=== PATIENT | female | born 1980 | race Caucasian/White ===

== ENCOUNTER → 2020-10-27 10:26 | Outpatient (CLI) | payer OTHER, SELFPAY ==
--- NOTE | ~2020-10-27 | MM_ITS ---
EXAMINATION: MM screening yari BI w vamsi HISTORY: Screening TECHNIQUE: Craniocaudal and mediolateral oblique 3-D tomosynthesis images were obtained and synthetic 2-D images were generated. CAD analysis was submitted and interpreted. COMPARISON: No prior mammogram is available for comparison at this institution. BREAST PARENCHYMAL COMPOSITION: The breasts are heterogeneously dense, which may obscure small masses . FINDINGS: There is no evidence of suspicious mass, calcification, or architectural distortion to sugg est malignancy in either breast. There has been no suspicious interval change. IMPRESSION: 1. No mammographic evidence of malignancy. 2. Recommend routine screening mammography in one year. BI-RADS Category 1: Negative Reviewed, dictated and finalized at location A.
== END ==
PROVIDERS: Visit Provider Obstetrics & Gynecology
DX: Z12.31 Encounter for screening mammogram for malignant neoplasm of breast (principal)
CPT/HCPCS: 77063; 77067

== ENCOUNTER → 2022-02-08 10:32 | Outpatient (CLI) | payer OTHER, SELFPAY ==
--- NOTE | ~2022-02-08 | MM_ITS ---
EXAMINATION: MM screening yari BI w vamsi HISTORY: Screening mammogram TECHNIQUE: Craniocaudal and mediolateral oblique 3-D tomosynthesis images were obtained and synthetic 2-D images were generated. Bilateral rotated lateral CC views. .......CAD analysis was submitted and interpreted. COMPARISON: 10/27/2020 bilateral screening mammogram BREAST PARENCHYMAL COMPOSITION: The breasts are heterogeneously dense, which may obscure small masses . FINDINGS: There is no evidence of suspicious mass, calcification, or architectural distortion to sugg est malignancy in either breast. There has been no suspicious interval change. IMPRESSION: 1. No mammographic evidence of malignancy. 2. Recommend routine screening mammography in one year. BI-RADS Category 1: Negative Reviewed, dictated and finalized at location A. [employer]
== END ==
PROVIDERS: PCP Family Medicine; Visit Provider Obstetrics & Gynecology
DX: Z12.31 Encounter for screening mammogram for malignant neoplasm of breast (principal)
CPT/HCPCS: 77063; 77067

== ENCOUNTER 2023-04-13 08:19 | Outpatient (CLI) | payer OTHER, SELFPAY ==
--- NOTE | 2023-04-24 16:17 | WPDSLEEPSTUD ---
Sleep Study Date of Study: 04/13/23 Ordering Provider: Marisol Arellano DO Interpreting Physician: Marisol Arellano DO Sleep Study Type: Polysomnogram Height: 1.7 m Weight: 79.379 kg Body Mass Index: 27.3 Neck Circumference (inches): 15 [place]: 16 Reason for Sleep Study Previous home sleep study done through her ENT physician that was negative. Still has significant hypersomnia. Sleep History The patient is a 42-year-old female with anxiety, anemia in seasonal allergies that had a sleep study ordered for evaluation of sleep apnea. 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 She occasionally awakens from sleep short of breath. She rarely awakens at night with heartburn, belching or cough. She frequently snores and is frequently loud enough that others complain. She occasionally has trouble sleeping when she has a cold. She rarely wakes up gasping for air throughout the night. She rarely has breathing problems at night observed by herself or others. She rarely sweats excessively at night. He rarely has heart palpitations or irregular heartbeats during the night. She frequently falls asleep during the day but never while driving. She denies sleep paralysis and cataplexy. She occasionally has trouble at school or work due to sleepiness. She frequently experiences vivid dreamlike scenes upon awakening or falling asleep. She denies feeling afraid of going to sleep. She frequently has nightmares and frequently remembers her dreams. She occasionally has thoughts racing through her mind. She rarely feels sad or depressed. She occasionally has anxiety. She rarely has muscular tension. She occasionally notices parts of her body jerk. She occasionally kicks during the night. She rarely has crawling and aching feelings in her legs and rarely has leg pain during the night. She rarely grinds her teeth during sleep frequently awakens with morning jaw pain. She is rarely bothered by pain during the day and rarely awakened by pain during the night. She rarely wakes feeling stiff in the morning. She rarely wakes up with sore or achy muscles. She rarely wakes up with pain in the neck, spine or other joints. She goes to bed at 9:30 p.m. on weekdays and between 10 to 10:30 p.m. and weekends. It takes her 20-30 minutes to fall asleep. She wakes 5-6 times throughout the night to change position and occasionally use restroom. It takes her 15-20 minutes to back asleep. She wakes up at 5:30 a.m. on weekdays and 9:00 a.m. on the weekends. She typically gets 8 hours of sleep a night. She will stay in bed for 10 minutes after waking up on weekdays and between 20-30 minutes on the weekends. She currently lives her and 3 children. She denies consuming any caffeinated beverages within 2 hours of bedtime. She denies engaging in physical exercise before bedtime. He will occasionally read before falling asleep. She will take occasional naps in afternoon or the evening but they are not refreshing She consumes 1 caffeinated beverage day. He will consume 1 alcoholic beverage per month. She denies tobacco and recreational drug use. [facility] Past Medical History Medical History Allergies Anxiety Arthritis of right knee Headache Major depressive disorder, single episode, unspecified Recurrent loss Surgical History Surgical History History of appendectomy History of Family History Family History Grandparent Cancer Hypertension Mother Hypertension Thyroid disorder Other Depression Cerebrovascular accident Sibling Thyroid disorder Social History Social History Social History: Caffeine-tea/soda Smoking status: Never smoker Alcohol intake: current Alcohol use details: rarely
[2023-04-24 16:21] VITALS: BMI 27.3
== END 2023-04-14 07:05 | disposition home or self-care (01) ==
LOC: ANHCSM 08:21
PROVIDERS: PCP Family Medicine; Visit Provider Family Medicine
DX: G47.9 Sleep disorder, unspecified (principal)
CPT/HCPCS: 95810

== ENCOUNTER 2023-10-23 15:14 | Outpatient (CLI) | payer OTHER, SELFPAY ==
--- NOTE | ~2023-10-23 | MM_ITS ---
EXAMINATION: MM screening yari BI w vamsi HISTORY: Screening TECHNIQUE: Craniocaudal and mediolateral oblique 3-D tomosynthesis images were obtained and synthetic 2-D images were generated. CAD analysis was submitted and interpreted. COMPARISON: Comparison to multiple prior studies sequentially, with oldest reviewed study dated 10/27. BREAST PARENCHYMAL COMPOSITION: Dense: The breasts are heterogeneously dense, which may obscure small masses FINDINGS: There is no evidence of suspicious mass, calcification, or architectural distortion to sugg est malignancy in either breast. There has been no suspicious interval change. IMPRESSION: 1. No mammographic evidence of malignancy. 2. Recommend routine screening mammography in one year. BI-RADS Category 1: Negative Reviewed, dictated and finalized at location B.
== END 2023-10-23 15:15 ==
LOC: MICIMG 15:17
DX: Z12.31 Encounter for screening mammogram for malignant neoplasm of breast (principal)
CPT/HCPCS: 77063; 77067